=== PATIENT | male | born 1965 | race African-American/Black ===

== ENCOUNTER 2021-02-24 03:16 | Inpatient (IN) | payer OTHER ==
[~2021-02-24] VITALS: Ht 185.4 cm; Wt 80.6 kg
[2021-02-24 03:17] VITALS: BP 143/103
[2021-02-24] MEDS ORDERED: LOPRESSOR50 MG PO (03:24)
[2021-02-24] MEDS ORDERED: LIPITOR10 MG PO (03:24)
[2021-02-24 04:01] LABS: ABSOLUTE NEUTROPHILS 3.6 thou/uL (1.4-8.2); BASOPHILS 0.6 % (0.0-2.0); EOSINOPHILS 2.8 % (0.0-3.0); HEMATOCRIT 44.3 % (42.0-52.0); HEMOGLOBIN 14.7 gm/dL (14.0-18.0); LYMPHOCYTES 23.8 % (24.0-44.0); MCH 29.4 pg (26.0-34.0); MCHC 33.1 g/dL (28.0-37.0); MCV 88.9 fL (80.0-100.0); PLATELET COUNT 273 thou/uL (150-400); POLYS 58.8 % (36.0-66.0); RBC 4.98 mil/uL (4.50-6.00); RDW 13.9 % (10.5-14.5); WBC 6.1 thou/uL (4.0-11.0)
[2021-02-24 04:08] LABS: CALCIUM 8.5 mg/dL (8.5-10.1); CREATININE 1.5 mg/dL (0.7-1.3); POTASSIUM 3.7 mmol/L (3.5-5.1)
[2021-02-24 04:18] LABS: ALBUMIN 3.5 g/dL (3.4-5.0); TOTAL BILIRUBIN 0.7 mg/dL (0.2-1.0); TOTAL PROTEIN 7.3 g/dL (6.4-8.2)
[2021-02-24 07:22] LABS: CHOLESTEROL 139 mg/dL (<200); HDL CHOLESTEROL 61 mg/dL (>40); LDL CHOLESTEROL 72 mg/dL (<100); TC:HDL 2.3 Ratio (Not establshd); TRIGLYCERIDE 30 mg/dL (<150); VLDL 6 mg/dL (<40)
[2021-02-24 07:25] LABS: PROTIME 10.4 Seconds (9.3-11.4)
[2021-02-24 08:00] VITALS: BP 138/87
--- NOTE | 2021-02-24 11:53 | EKG ---
[address] [address] ELECTROCARDIOGRAM REPORT Name: SKYLA RODRIGUEZ Room #: 170-10 ADM IN M.R.#: [id number] Admission: 02/24/21 Attend Phys: Rikki Luna MD Discharge: Date of : 61 Report #: [id number] [facility] ED Test Date: 2021-02-24 Test Time: 03:22:28 Pat Name: SKYLA RODRIGUEZ Department: Room: 170 Gender: M Executive Administrative Asst: mee : 1965 Requested By: Alverto Whitaker Order Number: [id number] MD: Connor Monteiro Measurements Intervals [place] Rate: 90 P: 63 AR: 184 QRS: -46 QRSD: 116 T: 26 QT: 357 QTc: 437 Interpretive Statements Sinus rhythm Left atrial enlargement Left anterior fascicular block Anterior infarct, old Abnormal T, consider ischemia, lateral leads Compared to ECG 11/01/2008 01:21:11 Atrial abnormality now present Left anterior fascicular block now present T-wave abnormality now present Possible ischemia now present Left-axis deviation no longer present Myocardial infarct finding still present Electronically Signed On 02-24-2021 11:52:35 CDT by Connor Monteiro [email or web address] <ELECTRONICALLY SIGNED> By: Connor Monteiro MD 02/24/21 1152 1 1 Connor Monteiro MD /EPI
[2021-02-24 12:00] VITALS: BP 161/107
--- NOTE | 2021-02-24 13:45 | NUR ---
THIS RN SPOKE WITH DR. GARCIA AND MADE HIM AWARE THAT PT IS REQUESTING TO GO HOME. DR. GARCIA UPDATED ON POC AND STATES HE WILL DISCHARGE PT IN ABOUT AN HOUR
[2021-02-24 14:32] VITALS: BP 136/96
[2021-02-24 14:46] VITALS: BP 119/77
--- NOTE | 2021-02-25 08:33 | HC ---
[facility] [place] [address] CONSULTATION Name: SKYLA RODRIGUEZ SR Room #: 170-[facility] IN Nusrat#: [id number] Admission: 02/24/21 Attend Phys: Rikki Luna MD Discharge: 02/24/21 Date of : 61 Report #: [id number] THIS REPORT FOR: cc: Terri Mills MD, Kristin E. MD Park, Jin S. MD ~ DATE OF SERVICE: 02/24/2021 CHIEF COMPLAINT: Chest pain. HISTORY OF PRESENT ILLNESS: This is a 55-year-old gentleman with a history of hypertension, hyperlipidemia, recent valve repair performed at [facility], presenting with epigastric and right shoulder discomfort. He had just finished playing around the golf when he developed a discomfort in the epigastric area radiating up to the right shoulder. He felt mildly short of breath. Denies any recent fever, chills, or nausea. He presented to the ER for evaluation. ECG revealed T-wave inversions in the lateral leads. His workup revealed a creatinine of 1.5 and high sensitivity troponin level of 120. He was treated with aspirin, heparin and nitro, with relief of symptoms. PAST MEDICAL HISTORY: Appears to have undergone minimally invasive mitral valve repair in August of 2020, at [facility]. History of hypertension, hypercholesterolemia. ALLERGIES: None. MEDICATIONS: At home include metoprolol 50 mg daily, Lipitor 10 mg daily. SOCIAL HISTORY: Denies tobacco use. FAMILY HISTORY: Negative for premature CAD. REVIEW OF SYSTEMS: A full 10-point review of systems performed. Only the pertinent positives and negatives are described in the HPI. PHYSICAL EXAMINATION: VITAL SIGNS: Blood pressure is 160/80, heart rate is 90 beats per minute. GENERAL APPEARANCE: This is a well-developed, well-nourished male in no acute distress. HEENT: Normocephalic, atraumatic. Oral mucosa moist. NECK: Supple. LUNGS: Clear to auscultation. CARDIAC: Regular rate and rhythm, S1, S2 positive. ABDOMEN: Soft, nontender. EXTREMITIES: No cyanosis, no edema. [facility] [address] [place] [address] CONSULTATION Name: SKYLA RODRIGUEZ Room #: [address] [place] [address] IN Maxi#: [id number] Admission: 02/24/21 Attend Phys: Rikki Luna MD Discharge: 02/24/21 Date of : 61 Report #: [id number] DIAGNOSTIC DATA: ECG reveals sinus rhythm, poor R-wave progression, T-wave inversions in the lateral leads. LABORATORY DATA: White count 6.1. High sensitivity troponin is 121, creatinine is 1.5. ASSESSMENT AND PLAN: 1. Non-ST elevation myocardial infarction, the patient presenting with epigastric/right shoulder pain. Found to have ECG changes and positive troponin levels. Given his symptoms and presentation, I have discussed the pros and cons of a cardiac catheterization. All questions were answered. He understands and wishes to proceed. 2. Hypertension, continue with beta emilee therapy. 3. Hypercholesterolemia, resume statin. 4. Elevated creatinine. Creatinine is 1.5, probably related to dehydration. We will hydrate. 5. Valve repair, we will await echo. <ELECTRONICALLY SIGNED> By: Connor Monteiro MD 02/25/21 0833 0734 0742 Connor Monteiro MD /nt
--- NOTE | 2021-02-25 09:38 | CATHLAB ---
[facility] [place] [address] INVASIVE PROCEDURE REPORT Name: SKYLA RODRIGUEZ Room #: 170-10 DIS IN Lev.Maxi.#: [id number] Admission: 02/24/21 Attend Phys: Rikki Luna MD Discharge: 02/24/21 Date of : 61 Report #: [id number] THIS REPORT FOR: cc: Terri Mills MD, Kristin E. MD Park, Jin S. MD ~ APPROVED REPORT Study performed: 02/24/2021 09:14:50 Patient Details Patient Status: ED Room #: The patient is a 55 year-old male Event Personnel Connor Monteiro Electronics System Mechanic, Jocelyn Martinez RN RN, Eduar Broderick RT(R)(CV) Titi Hampton Roberta Monitor Procedures Performed Art Access - R femoral artery* Left Heart Cath w/or w/o Coronaries [id number] [facility] Hemostasis with Manual pressure 30918 Initial Mod Sed Same Phys/QHP Gr5y [id number] 14093 Mod Sed Same Phys/QHP Ea 070647 Indication Abnormal ECG, Dyspnea, Chest pain, The patient presented with chest pain and positive troponin levels. Risk Factors Hypercholesterolemia, Hypertension, Has a history of mitral valve repair. Previous Procedures/Diagnoses Previous Valve Surgery Procedure Narrative The Right Groin^ was infiltrated with 1% Lidocaine subcutaneous anesthesia. A PINNACLE 4FR Sheath #[id number] sheath was inserted into the RFA^. Coronary angiography was performed using coronary diagnostic catheters. The right coronary system was accessed and visualized with a jr4 catheter. The left coronary system was accessed and visualized with a jl5 catheter. The left ventricle was accessed and visualized with a angle pig catheter. Hemostasis was obtained with manual pressure following sheath removal without any [facility] [address] [place] [address] INVASIVE PROCEDURE REPORT Name: SKYLA RODRIGUEZ Room #: [address] IN [facility].#: [id number] Admission: 02/24/21 Attend Phys: Rikki Luna MD Discharge: 02/24/21 Date of : 61 Report #: [id number] complications. Intraoperative Conscious Sedation Sedation start time: 1011 Case end Time: 1045 Fentanyl 50 mcg Versed 1 mg Fluoro Time: 2.51 minutes Dose: DAP 2593.50 cGycm2 304 mGy Contrast Type and Amount: Visipaque 70 ml Coronary Angiography The patient's coronary anatomy is right dominant. Diagnostic Cath Left Main Left main artery is a large-caliber vessel, appears angiographically normal. LAD The LAD is a moderate-sized caliber vessel, traverses the anterior wall and wraps around the apex. This vessel is patent with no flow-limiting lesions. Diagonal 1 This is a small to moderate-sized caliber vessel, patent with no flow-limiting lesions. Circumflex This is a moderate-sized caliber vessel, patent with no flow-limiting lesions. OM1 This is a small to moderate-sized caliber vessel, patent with no flow-limiting lesions. OM2 This is a moderate-sized caliber vessel, patent with no flow-limiting lesions. Right Coronary The RCA is a dominant vessel, patent with no flow-limiting lesions. R PDA This is a small to moderate-sized caliber vessel, patent with no flow-limiting lesions. RPLV This is a moderate-sized caliber vessel, courses the inferolateral wall down to the apex. This vessel is patent with no flow-limiting lesions. Left Ventriculography The left ventricle is mildly dilated in size with Diminished contractility. The left ventricular ejection fraction is estimated to be 35%. Hemodynamics The aortic pressure is 132/90 mmHg with a mean of 33 mmHg. The left ventricular pressure is 124/16 mmHg with a mean of mmHg. The left ventricular end diastolic pressure is 23 mmHg. [facility] [address] [place] [address] INVASIVE PROCEDURE REPORT Name: JIM RODRIGUEZTomas Acevedo Room #: [address] [place] [address] [place] [facility]#: [id number] Admission: 02/24/21 Attend Phys: Rikki Luna MD Discharge: 02/24/21 Date of : 61 Report #: [id number] Conclusion 1. Angiographically normal coronary arteries. 2. Nonischemic cardiomyopathy, EF in the 35% range. 3. Recommend guideline directed medical therapy. <ELECTRONICALLY SIGNED> By: Connor Monteiro MD 02/25/21936 6 6 Connor Monteiro MD /INF
== END 2021-02-24 14:55 | disposition home or self-care (01) | DRG 281 ==
LOC: ER 03:16 → EROBS 04:35
PROVIDERS: Emergency Medicine; Nurse Practitioner Family; ADMIT Internal Medicine; ATTEND Internal Medicine
PROC: 4A023N7 Measurement of Cardiac Sampling and Pressure, Left Heart, Percutaneous Approach (ICD-10-PCS; principal; 2021-02-24)
PROC: B211YZZ Fluoroscopy of Multiple Coronary Arteries using Other Contrast (ICD-10-PCS; principal; 2021-02-24)
PROC: B215YZZ Fluoroscopy of Left Heart using Other Contrast (ICD-10-PCS; principal; 2021-02-24)
DX: I21.4 Non-ST elevation (NSTEMI) myocardial infarction (principal); I42.8 Other cardiomyopathies; I10 Essential (primary) hypertension; E78.5 Hyperlipidemia, unspecified; Z20.822 Contact with and (suspected) exposure to COVID-19; E78.00 Pure hypercholesterolemia, unspecified; Z79.899 Other long term (current) drug therapy

== ENCOUNTER → 2021-03-04 | Outpatient (CLI) | payer OTHER ==
[~2021-03-04] MED LIST: LIPITOR10 MG PO; LOPRESSOR50 MG PO
== END ==
LOC: SJCVCIMAG 12:19
PROVIDERS: ATTEND Internal Medicine Cardiovascular Disease
DX: I08.1 Rheumatic disorders of both mitral and tricuspid valves (principal); I42.9 Cardiomyopathy, unspecified; I10 Essential (primary) hypertension; E78.00 Pure hypercholesterolemia, unspecified; Z79.82 Long term (current) use of aspirin; Z79.899 Other long term (current) drug therapy; Z72.89 Other problems related to lifestyle

== ENCOUNTER 2021-05-11 06:01 | Emergency (ER) | payer OTHER ==
[~2021-05-11] VITALS: Ht 185.4 cm; Wt 81.7 kg
[2021-05-11 06:30] LABS: ABSOLUTE NEUTROPHILS 2.6 thou/uL (1.4-8.2); BASOPHILS 1.6 % (0.0-2.0); EOSINOPHILS 3.6 % (0.0-3.0); HEMATOCRIT 45.4 % (42.0-52.0); LYMPHOCYTES 38.4 % (24.0-44.0); MCH 29.3 pg (26.0-34.0); MCHC 33.1 g/dL (28.0-37.0); MCV 88.5 fL (80.0-100.0); MONOCYTES 10.3 % (1.0-8.0); PLATELET COUNT 317 thou/uL (150-400); POLYS 46.1 % (36.0-66.0); RBC 5.13 mil/uL (4.50-6.00); RDW 13.1 % (10.5-14.5); WBC 5.5 thou/uL (4.0-11.0)
[2021-05-11 06:37] LABS: CALCIUM 8.7 mg/dL (8.5-10.1); CREATININE 1.5 mg/dL (0.7-1.3); POTASSIUM 3.7 mmol/L (3.5-5.1)
[2021-05-11 06:44] LABS: ALBUMIN 3.3 g/dL (3.4-5.0); TOTAL BILIRUBIN 0.3 mg/dL (0.2-1.0); TOTAL PROTEIN 7.6 g/dL (6.4-8.2)
[2021-05-11 06:45] LABS: URINE BILIRUBIN NEGATIVE (Negative); URINE BLOOD TRACE (Negative); URINE CLARITY CLEAR; URINE COLOR YELLOW; URINE GLUCOSE-RANDOM* NEGATIVE (Negative); URINE KETONES NEGATIVE (Negative); URINE LEUKOCYTES-REFLEX NEGATIVE (Negative); URINE NITRITE-REFLEX NEGATIVE (Negative); URINE PROTEIN (DIPSTICK) TRACE (Negative); URINE SPECIFIC GRAVITY >= 1.030 (1.005-1.035); URINE UROBILINOGEN 0.2 E.U./dl (0.2-1.0)
[2021-05-11 07:02] LABS: AMP/METHAMP Negative (Negative); BARBITURATES Negative (Negative); BENZODIAZEPINES Negative (Negative); COCAINE Negative (Negative); METHADONE Negative (Negative); OPIATES Negative (Negative); PCP Negative (Negative)
[2021-05-11] MEDS ORDERED: KEPPRA XR500 MG PO (07:42)
[2021-05-11 09:28] VITALS: BP 152/106
--- NOTE | 2021-05-11 09:58 | EKG ---
[place] [address] [facility] [place] [address] ELECTROCARDIOGRAM REPORT Name: SKYLA RODRIGUEZ Room #: REG [facility]#: [id number] Admission: 05/11/21 Attend Phys: Discharge: Date of : 61 Report #: [id number] [facility] ED Test Date: 2021-05-11 Test Time: 06:22:33 Pat Name: SKYLA RODRIGUEZ Department: Room: Gender: M Medical Secretary: : 1965 Requested By: Ariel Costello Order Number: [id number] MD: Connor Monteiro Measurements Intervals [place] Rate: 87 P: 52 TN: 185 QRS: -48 QRSD: 120 T: 45 QT: 404 QTc: 486 Interpretive Statements Sinus rhythm Probable left atrial enlargement Nonspecific IVCD with LAD Inferior infarct, old Abnrm T, consider ischemia, anterolateral lds Compared to ECG 02/24/2021 03:22:28 Intraventricular conduction delay now present Left anterior fascicular block no longer present T-wave abnormality no longer present Myocardial infarct finding still present Possible ischemia still present Electronically Signed On 05-11-2021 9:58:03 [employer] by Connor Monteiro [email or web address] <ELECTRONICALLY SIGNED> By: Connor Monteiro MD 05/11/21 0958 1 1 Connor Monteiro MD /EPI
== END 2021-05-11 09:30 | disposition home or self-care (01) ==
LOC: ER 06:01
PROVIDERS: Emergency Medicine
DX: R56.9 Unspecified convulsions (principal); I25.2 Old myocardial infarction; I10 Essential (primary) hypertension; E78.5 Hyperlipidemia, unspecified; Z79.899 Other long term (current) drug therapy

== ENCOUNTER → 2021-07-11 | Outpatient (CLI) | payer OTHER ==
[~2021-07-11] MED LIST changes: +KEPPRA XR500 MG PO
[2021-07-11 12:04] LABS: ALBUMIN 3.4 g/dL (3.4-5.0); CALCIUM 8.6 mg/dL (8.5-10.1); CREATININE 1.2 mg/dL (0.7-1.3); POTASSIUM 4.7 mmol/L (3.5-5.1); TOTAL BILIRUBIN 0.2 mg/dL (0.2-1.0); TOTAL PROTEIN 7.3 g/dL (6.4-8.2)
== END ==
LOC: MRI 08:29
PROVIDERS: ATTEND Psychiatry & Neurology Neuromuscular Medicine
DX: J34.89 Other specified disorders of nose and nasal sinuses (principal); J32.2 Chronic ethmoidal sinusitis; R29.2 Abnormal reflex; R56.9 Unspecified convulsions

== ENCOUNTER → 2021-07-23 | Outpatient (CLI) | payer OTHER ==
--- NOTE | ~2021-07-23 | EEG ---
[facility] [place] [address] ELECTROENCEPHALOGRAM Name: SKYLA RODRIGUEZ Kristina [id number] Admission: 07/23/21 Attend Phys: Dom Merida MD Discharge: Date of : 61 Report #: [id number] THIS REPORT FOR: //name// DATE OF SERVICE: 07/23/2021 This patient is being evaluated for the possibility of seizure. EEG was done by placing the electrode by standard 10-20 system of electrode placement. Both referential and sequential montages were used for recording. Background activity in this patient's EEG is about 10 Hz and 30 microvolt. The patient became drowsy that is associated with bilateral slowing. Photic stimulation is unremarkable. Throughout the record, no active epileptiform activity was noticed. IMPRESSION: This patient's EEG is within normal limit. Thank you very much for this referral. By: 1546 [id number] Dom Merida MD /nt
== END ==
LOC: NEURO 10:43
PROVIDERS: ATTEND Psychiatry & Neurology Neuromuscular Medicine
DX: R56.9 Unspecified convulsions (principal); R29.2 Abnormal reflex